=== PATIENT | female | born 1970 | race Asian ===

== ENCOUNTER 2019-08-13 13:45 | Emergency (ER) | payer BC ==
[~2019-08-13] VITALS: Ht 157.5 cm; Wt 58.1 kg
[2019-08-13 14:30] VITALS: BP 125/76
[2019-08-13] MEDS ORDERED: NEOMYCIN-BACITRACIN-POLYM UNITDOSE PKG TOP OINT TOP ONE (15:00)
== END 2019-08-13 15:55 | disposition home or self-care (01) ==
LOC: ER 13:45
DX: T22.112A Burn of first degree of left forearm, initial encounter (principal); S16.1XXA Strain of muscle, fascia and tendon at neck level, initial encounter; V43.52XA Car driver injured in collision with other type car in traffic accident, initial encounter; Y93.89 Activity, other specified; Y99.8 Other external cause status; Y92.410 Unspecified street and highway as the place of occurrence of the external cause
CPT/HCPCS: 72040